=== PATIENT | male | born 1985 | race Hispanic/Latino ===

== ENCOUNTER 2022-09-08 19:17 | Emergency (ER) | payer SELFPAY ==
[~2022-09-08] VITALS: Ht 172.7 cm; Wt 80.0 kg
[2022-09-08] MEDS ORDERED: PENICILLN VK500 MG PO (19:39)
[2022-09-08] MEDS ORDERED: TRAMADOL HYDROC50 M1 PO (19:39)
[2022-09-08 19:53] VITALS: BP 119/80
== END 2022-09-08 20:14 | disposition home or self-care (01) | DRG 159 ==
LOC: ED 19:17
DX: K04.7 Periapical abscess without sinus (principal)